=== PATIENT | female | born 1955 | race Two or more races ===

== ENCOUNTER 2018-04-05 07:30 | Day surgery (SDC) | payer BC ==
[~2018-04-05] VITALS: Ht 167.6 cm; Wt 49.9 kg
[2018-04-05] VITALS (9 sets, daily range): BP systolic 115–148; BP diastolic 60–81
[~2018-04-05 07:30] MED LIST: LR 1000ml ONE; Lidocaine 1% MPF 10mg/ml 5ml ONE; Midazolam 2mg/2ml Inj ONE; Propofol 200mg/20ml IV ONE
[2018-04-05] MEDS ORDERED: NKM (08:06)
--- NOTE | 2018-04-05 08:09 | Pre-Procedure Note/Attestation ---
Pre-Procedure Note/Attestation Complete Prior to Procedure Planned Procedure: not applicable Procedure Narrative: colonoscopy Indications for Procedure Pre-Operative Diagnosis: screening Attestation I attest that I discussed the nature of the procedure; its benefits; risks and complications; and alternatives (and the risks and benefits of such alternatives ), prior to the procedure, with the patient (or the patient's legal business center representative). I attest that, if there was a reasonable possibility of needing a blood transfusion, the patient (or the patient's legal business center representative) was given the [facility] standardized written summary, pursuant to the [place] Blood Safety Act ([place] Health and Safety Code # 1645, as amended). I attest that I re-evaluated the patient just prior to the surgery and that there has been no change in the patient's H&P, except as documented below: Vivek Issa MD Apr 05, 2018 08:09
--- NOTE | 2018-04-05 08:10 | Short Stay Surgery H&P ---
History of Present Illness History of Present Illness Chief Complaint see recent office consult note HPI Carline Cummins is a 62 year old female who was admitted on for Colon Screening Patient History Allergies: Coded Allergies: SULFA (SULFONAMIDE ANTIBIOTICS) (Verified Allergy, Unknown, 04/05/18) Medication History Scheduled No Known Medications* (NKM - No Known Medications*), 0 ., (Reported) Physical Exam Vital Signs Last Vital Signs Date Time Temp Pulse Resp B/P (MAP) Pulse Ox O2 Delivery O2 Flow Rate FiO2 04/05/18 08:04 Room Air 04/05/18 07:50 97.5 59 18 148/81 (103) 99 97.5 Plan Attestation Are the patient's medical conditions optimized for surgery? Vivek Issa MD Apr 05, 2018 08:10
--- NOTE | 2018-04-05 08:31 | Short Stay Surgery H&P ---
History of Present Illness History of Present Illness Chief Complaint screening colonoscopy HPI Carline Cummins is a 62 year old female who was admitted on for Colon Screening Patient History Allergies: Coded Allergies: SULFA (SULFONAMIDE ANTIBIOTICS) (Verified Allergy, Unknown, 04/05/18) Medication History Scheduled No Known Medications* (NKM - No Known Medications*), 0 ., (Reported) Review of Systems Cardiovascular: Reports: no symptoms Respiratory: Reports: no symptoms Skeletal: Reports: no symptoms Gastrointestinal: Reports: no symptoms Genitourinary: Reports: no symptoms Neurologic: Reports: no symptoms Endocrine: Reports: no symptoms Hematologic: Reports: no symptoms Physical Exam Vital Signs Last Vital Signs Date Time Temp Pulse Resp B/P (MAP) Pulse Ox O2 Delivery O2 Flow Rate FiO2 04/05/18 08:04 Room Air 04/05/18 07:50 97.5 59 18 148/81 (103) 99 97.5 Skin: normal HENT: normal Heart: normal Lungs: normal Abdomen: normal Extremities: normal Plan Plan of Care colonoscopy Attestation Are the patient's medical conditions optimized for surgery? Attestation Response: yes Vivek Issa MD Apr 05, 2018 08:31
[2018-04-05] MEDS ORDERED: LR 1000ml 1,000 ML IVLG SCH (08:46)
--- NOTE | 2018-04-05 08:48 | Endoscopy Procedure Note ---
Endoscopy Procedure Note General Indication for Procedure: screening Procedures Performed: colonoscopy Operative Findings/Diagnosis: rectal polyp Specimen: yes Pt Tolerated Procedure Well: Yes Estimated Blood Loss: none Anesthesia Anesthesiologist: tereza Anesthesia: MAC Inserted Devices Implant(s) used?: No Quality Quality of Bowel Preparation: Excellent Did scope reach the cecum?: Yes Was there any complications?: No GI Core Measures 50 yrs or older w/o bx or poly: No 10yrs. F/U not recommended: Yes If not recommended, why?: Above average risk 10 yrs. F/U needed: Yes 18 years or older w/prev. colo: No Vivek Issa MD Apr 05, 2018 08:48
--- NOTE | 2018-04-05 08:52 | Anethesia Preoperative Eval ---
Anesthesia Pre-op PMH/ROS General Date of Evaluation: Apr 05, 2018 Time of Evaluation: 08:28 Anesthesiologist: Yaima ASA Score: ASA 2 Mallampati Score Class I : Soft palate, uvula, fauces, pillars visible Class II: Soft palate, uvula, fauces visible Class III: Soft palate, base of uvula visible Class IV: Only hard plate visible Mallampati Classification: Class I Surgeon: Maegan Diagnosis: Abd Pain Surgical Procedure: Colonoscopy Anesthesia History: none Family History: no anesthesia problems Allergies: Coded Allergies: SULFA (SULFONAMIDE ANTIBIOTICS) (Verified Allergy, Unknown, 04/05/18) Medications: see eMAR Past Medical History Cardiovascular: Reports: HTN Gastrointestinal/Genitourinary: Reports: GERD Anesthesia Pre-op Phys. Exam Physician Exam Last Vital Signs Date Time Temp Pulse Resp B/P (MAP) Pulse Ox O2 Delivery O2 Flow Rate FiO2 04/05/18 08:04 Room Air 04/05/18 07:50 97.5 59 18 148/81 (103) 99 97.5 Constitutional: NAD Neurologic: CN 2-12 intact Cardiovascular: RRR Respiratory: CTA Gastrointestinal: S/NT/ND Airway Exam Mallampati Score: Class I MO: full ROM: full Teeth: intact Anesthesia Pre-op A/P Risk Assessment & Plan Assessment: ASA 2 Plan: GA Status Change Before Surgery: Cory Castro MD Apr 05, 2018 08:52
--- NOTE | 2018-04-05 08:53 | 48 Hour Post Anesthesia Eval ---
Post Anesthesia Evaluation Procedure: Colonoscopy Date of Evaluation: Apr 05, 2018 Time of Evaluation: 11:23 Blood Pressure Systolic: 124 0: 76 Pulse Rate: 57 Respiratory Rate: 18 Temperature (Fahrenheit): 98.2 O2 Sat by Pulse Oximetry: 100 Airway: patent Nausea: No Vomiting: No Pain Intensity: 1 Hydration Status: adequate Cardiopulmonary Status: Stable Mental Status/LOC: patient returned to baseline Follow-up Care/Observations: 0 Post-Anesthesia Complications: 0 Follow-up care needed: ready to discharge Cory Erwin MD Apr 05, 2018 08:53
--- NOTE | 2018-04-05 08:53 | Immediate Post-Op Evaluation ---
Immediate Post-Op Evalulation Immediate Post-Op Evalulation Procedure: Colonoscopy Date of Evaluation: Apr 05, 2018 Time of Evaluation: 09:14 IV Fluids: 300 LR Blood Products: 0 Estimated Blood Loss: 1 Urinary Output: 0 Blood Pressure Systolic: 112 Blood Pressure Diastolic: 69 Pulse Rate: 55 Respiratory Rate: 14 O2 Sat by Pulse Oximetry: 100 Temperature (Fahrenheit): 98 Pain Score (1-10): 1 Nausea: No Vomiting: No Complications 0 Patient Status: awake, reacts, patent, none Hydration Status: adequate Cory Erwin MD Apr 05, 2018 08:53
[2018-04-05] MEDS ORDERED: HYDROcodone/Acetamin 7.5/325 tab ORAL PRN (09:00)
[2018-04-05] MEDS ORDERED: Metoclopramide 10mg/2ml Inj IVP PRN (09:00)
[2018-04-05] MEDS ORDERED: Midazolam 2mg/2ml Inj IVP PRN (09:00)
[2018-04-05] MEDS ORDERED: fentaNYL 100 mcg/2 mL IV PRN (09:00)
[2018-04-05] MEDS ORDERED: Norco 5mg/325mg tab ORAL PRN (09:00)
[2018-04-05] MEDS ORDERED: Atropine Inj 1mg/10ml Syr IV PRN (09:00)
[2018-04-05] MEDS ORDERED: Labetalol 5mg/ml 20ml vial IV PRN (09:00)
[2018-04-05] MEDS ORDERED: LORazepam Inj 2mg/ml 1ml IV PRN (09:00)
[2018-04-05] MEDS ORDERED: oxyCODONE HCL/Acetaminophen 5/325mg ORAL PRN (09:00)
[2018-04-05] MEDS ORDERED: Ketorolac 30mg Inj IV PRN ×2 (09:00)
[2018-04-05] MEDS ORDERED: Hydromorphone 0.5mg/0.5ml inj IVP PRN (09:00)
[2018-04-05] MEDS ORDERED: DiphenhydrAMINE 50mg/ml Inj IVP PRN (09:00)
--- NOTE | 2018-04-05 10:30 | Procedure Note ---
DATE OF PROCEDURE: 04/05/2018 SURGEON: Vivek Issa M.D. ANESTHESIOLOGIST: Dr. Erwin. PROCEDURE: Colonoscopy with biopsy. ANESTHESIA: Per Dr. Erwin. INSTRUMENT: Olympus adult flexible colonoscope. INDICATION: Screening colonoscopy. The procedure, risks, benefits, and possible consequences, including hemorrhage, aspiration, perforation and infection, and alternative treatments, were explained to the patient/legal guardian by Dr. Vivek Issa and the patient/legal guardian understood and accepted these risks. DESCRIPTION OF PROCEDURE: After informed consent was obtained and the patient was adequately sedated, first rectal exam was performed which was normal. Then, the scope was advanced from the rectum into the cecum and then subsequently to terminal ileum. Quality of prep was excellent. The patient had normal colonoscopy examination except one diminutive polyp in the rectum which was removed with the cold biopsy forceps technique. The rest of the exam was grossly normal. Retroflexion of rectum showed evidence of no obvious large internal hemorrhoids. SUMMARY OF FINDINGS: Normal colonoscopy examination except for one diminutive polyp in the rectum, status post biopsy. RECOMMENDATIONS: Follow up biopsy results and treat accordingly. Vivek Issa M.D. DR: Sasha JOB#: [id number] CC:
--- NOTE | 2018-04-06 16:43 | Cardiology Report ---
APPROVED REPORT EKG Measurement Heart [id number] Sinus bradycardia Otherwise normal ECG
== END 2018-04-05 10:40 | disposition home or self-care (01) ==
LOC: GAS 07:30
DX: Z12.11 Encounter for screening for malignant neoplasm of colon (principal); K62.1 Rectal polyp; K21.9 Gastro-esophageal reflux disease without esophagitis; I10 Essential (primary) hypertension; Z88.2 Allergy status to sulfonamides
CPT/HCPCS: 45380; 93005; J2250; J2704; J7120; 94003; 94150